=== PATIENT | female | born 1935 | race Two or more races ===

== ENCOUNTER 2023-03-07 00:19 | Inpatient (IN) | payer OTHER ==
[~2023-03-07] VITALS: Ht 157.5 cm; Wt 41.7 kg
[~2023-03-07 00:19] MED LIST: HYZAAR 50-12.1 UDTAB; JANUMET 50-1,1 UDTAB; LEVOXYL75 MCG; NEURONTIN300 MG
[2023-03-07] MEDS ORDERED: GLIMEPIRIDE1 M1 (00:52)
[2023-03-07] MEDS ORDERED: ARICEPT5 MG (00:53)
[2023-03-07] MEDS ORDERED: RAYOS2 MG (00:53)
[2023-03-07] MEDS ORDERED: NAMENDA XR21 MG (00:53)
[2023-03-07 02:56] LABS: ABG PH 7.451 (7.35-7.45); ABG pCO2 42.8 mmHg (35-45)
[2023-03-07 02:57] LABS: ABG PO2 58.9 mmHg (80-100); BASE EXCESS 4.6 mmol/l; BICARBONATE 29.2 mmol/l (23-25); Tco2 30.5 mmol/l
[2023-03-07 02:58] LABS: allen test SATISFACTORY; o2 21 %; puncture site BRADIAL LEFT
[2023-03-07 02:59] LABS: SaO2 91.8 %
[2023-03-07 03:23] LABS: HEMATOCRIT 34.1 % (36.0-45.00); HEMOGLOBIN 11.5 g/dL (12.0-15.00); MEAN CELL VOLUME 95.8 fL (80.00-100.00); MEAN CORPUSCULAR HEMOGLOBIN 32.2 pg (27.00-32.0); MEAN CORPUSCULAR HGB CONC 33.6 g/dl (32.0-36.0); PLATELET COUNT 306 K/uL (150-450); RED BLOOD COUNT 3.56 M/uL (4.00-6.00); RED CELL DISTRIBUTION WIDTH 14.3 % (11.5-14.5)
[2023-03-07 03:31] LABS: INR 0.94; PARTIAL THROMBOPLASTIN TIME 25.6 SECONDS (22.0-34.0); PROTHROMBIN TIME 9.9 SECONDS (9.0-11.5)
[2023-03-07 03:32] LABS: ALBUMIN 3.1 gm/dL (3.4-5.0); BILIRUBIN TOTAL 0.12 mg/dL (0.3-1.2); CALCIUM 9.3 mg/dL (8.5-10.1); CREATININE SERUM 0.59 mg/dL (0.55-1.02); GFR 96.42; GLOBULINA 3.6 G/DL (2.4-3.5); POTASSIUM 3.93 mEq/L (3.5-5.1); TOTAL PROTEIN 6.7 gm/dL (6.4-8.2)
[2023-03-07 03:44] LABS: PH,URINE 7.5 (5.0-8.0); URINE APPEARANCE Cloudy; URINE BILIRRUBIN Negative (NEGATIVE); URINE BLOOD Negative; URINE COLOR Yellow; URINE LEUKOCYTE Large; URINE NITRATE Positive; URINE PROTEIN 30 (NEGATIVE); URINE UROBILINOGEN 0.2 E.U./dl
[2023-03-07 03:48] LABS: URINE EPITHELIAL CELLS 22.2 uL (0.0-38.8); URINE RBC 5.7 uL (0.0-20.8); URINE WBC 433.7 uL (0.0-23.2)
[2023-03-07 04:21] LABS: URINE BACTERIA > 9821.5 uL (0.0-1933); URINE GLUCOSE 500 MG/DL (NEGATIVE)
[2023-03-07 22:09] LABS: ABG PH 7.469 (7.35-7.45); ABG PO2 73.9 mmHg (80-100); ABG pCO2 43.3 mmHg (35-45); BASE EXCESS 6.2 mmol/l; BICARBONATE 30.7 mmol/l (23-25); SaO2 95.9 %; allen test SATISFACTORY; o2 32 %; puncture site RADIAL LEFT
[2023-03-09 07:36] LABS: HEMATOCRIT 32.8 % (36.0-45.00); HEMOGLOBIN 11.5 g/dL (12.0-15.00); MEAN CORPUSCULAR HEMOGLOBIN 32.9 pg (27.00-32.0); PLATELET COUNT 309 K/uL (150-450); RED BLOOD COUNT 3.49 M/uL (4.00-6.00)
[2023-03-09 07:49] LABS: ERYTHROCYTE SEDIMENTATION RATE 90 mm/hr
[2023-03-12 05:20] LABS: HEMATOCRIT 32.6 % (36.0-45.00); HEMOGLOBIN 11.2 g/dL (12.0-15.00); MEAN CELL VOLUME 95.5 fL (80.00-100.00); MEAN CORPUSCULAR HEMOGLOBIN 32.8 pg (27.00-32.0); MEAN CORPUSCULAR HGB CONC 34.4 g/dl (32.0-36.0); PLATELET COUNT 437 K/uL (150-450); RED BLOOD COUNT 3.41 M/uL (4.00-6.00); RED CELL DISTRIBUTION WIDTH 13.8 % (11.5-14.5)
[2023-03-12 05:45] LABS: ALBUMIN 2.2 gm/dL (3.4-5.0); BILIRUBIN TOTAL 0.13 mg/dL (0.3-1.2); CALCIUM 8.5 mg/dL (8.5-10.1); CREATININE SERUM 0.69 mg/dL (0.55-1.02); GFR 80.48; GLOBULINA 3.3 G/DL (2.4-3.5); POTASSIUM 3.46 mEq/L (3.5-5.1); TOTAL PROTEIN 5.5 gm/dL (6.4-8.2)
[2023-03-12 05:46] LABS: C-REACTIVE PROTEIN 1.74 MG/DL (0.00-0.29)
[2023-03-12 05:49] LABS: ERYTHROCYTE SEDIMENTATION RATE 74 mm/hr
[2023-03-14] MEDS ORDERED: BACTRIM DS TAB1 EACH PO (18:59)
[2023-03-14] MEDS ORDERED: INTESTINEX680 M2 PO (18:59)
[2023-03-14] MEDS ORDERED: XOPENEX CO1.25 MG/0. IH (18:59)
[2023-03-14] MEDS ORDERED: IPRATROPIU0.2 MG/1 M IH (18:59)
== END 2023-03-14 19:52 | disposition home or self-care (01) | DRG 872 ==
LOC: ER 00:19 → MEDI 19:32
PROVIDERS: General Practice; ADMIT Internal Medicine; ATTEND Internal Medicine
PROC: BW24ZZZ Computerized Tomography (CT Scan) of Chest and Abdomen (ICD-10-PCS; principal; 2023-03-08)
PROC: B24BYZZ Ultrasonography of Heart with Aorta using Other Contrast (ICD-10-PCS; 2023-03-08)
PROC: 3E0F7GC Introduction of Other Therapeutic Substance into Respiratory Tract, Via Natural or Artificial Opening (ICD-10-PCS; 2023-03-08)
DX: A41.9 Sepsis, unspecified organism (principal); J44.1 Chronic obstructive pulmonary disease with (acute) exacerbation; J45.901 Unspecified asthma with (acute) exacerbation; N39.0 Urinary tract infection, site not specified; R65.20 Severe sepsis without septic shock; J20.9 Acute bronchitis, unspecified; R09.02 Hypoxemia; G30.9 Alzheimer's disease, unspecified; F02.80 Dementia in other diseases classified elsewhere, unspecified severity, without behavioral disturbance, psychotic disturbance, mood disturbance, and anxiety; E11.40 Type 2 diabetes mellitus with diabetic neuropathy, unspecified; Z79.4 Long term (current) use of insulin; I10 Essential (primary) hypertension; B96.20 Unspecified Escherichia coli [E. coli] as the cause of diseases classified elsewhere; Z88.0 Allergy status to penicillin; E03.9 Hypothyroidism, unspecified

== ENCOUNTER 2024-03-11 10:09 | Inpatient (IN) | payer OTHER ==
[~2024-03-11] VITALS: Ht 160 cm; Wt 43.5 kg
[~2024-03-11 10:09] MED LIST changes: +ARICEPT5 MG; +BACTRIM DS TAB1 EACH PO; +GLIMEPIRIDE1 M1; +INTESTINEX680 M2 PO; +IPRATROPIU0.2 MG/1 M IH; +NAMENDA XR21 MG; +RAYOS2 MG; +XOPENEX CO1.25 MG/0. IH
--- NOTE | 2024-03-11 10:30 | NUR ---
SE RECIBE PACIENTE ALERTA Y ORIENTADA EN COMPANIA DE FAMILIAR LA CUAL AL MOMENTO REFIERE VENIR A CAUSA DE TOS CON ESPUTO DESDE HACE UN SHREYA. AL MOMENTO PACIENTE SATURANDO 95% Y NO SE OBSERVA CON DISTRES.
[2024-03-11] MEDS ORDERED: ACETAMINOPHEN 500 MG GEL..CAP PO ONE (11:00)
[2024-03-11] MEDS ORDERED: BENZONATATE 100 MG CAPSULE PO ONE (11:00)
--- NOTE | 2024-03-11 11:23 | NUR ---
PACIENTE CON ORDENES DE LABORATORIA SE LILY BAJO MEDIDAS ASEPTICAS.SE PROVEE MEDICAMENTOS BAJO ORDEN MEDICA SE ORIENTA SOBRE PROCESO A PACIENTE LA MISMA REFIERE ENTENDER.
[2024-03-11 11:41] LABS: HEMATOCRIT 33.4 % (36.0-45.00); HEMOGLOBIN 11.1 g/dL (12.0-15.00); MEAN CORPUSCULAR HEMOGLOBIN 32.5 pg (27.00-32.0); MEAN CORPUSCULAR HGB CONC 33.2 g/dl (32.0-36.0); PLATELET COUNT 394 K/uL (150-450)
[2024-03-11] MEDS ORDERED: METHYLPREDNISOLONE SOD SUCC 125 MG VIAL IV ONE ×2 (12:30→15:00)
[2024-03-11 13:24] LABS: ABG PH 7.409 (7.35-7.45); ABG PO2 60.1 mmHg (80-100); ABG pCO2 47.8 mmHg (35-45); BASE EXCESS 3.9 mmol/l; BICARBONATE 29.5 mmol/l (23-25); SaO2 91.2 %; allen test SATISFACTORY; o2 21 %; puncture site RADIAL LEFT
[2024-03-11] MEDS ORDERED: LEVALBUTEROL HCL 1.25 MG/3 ML SOLUTION IH ONE (13:30)
[2024-03-11] MEDS ORDERED: IPRATROPIUM BROMIDE 0.5 MG/2.5 ML AMPUL.NEB IH ONE (13:30)
--- NOTE | 2024-03-11 13:42 | NUR ---
SE CONECTA PACIENTE A MONITOR CARDIACO Y OXIMETRIE DE PULSO. SE CANALIZA Y SE THERESE EN S/L. SE LILY MUESTRAS DE LABORATOIROS Y SE ENVIAN. SE REALIZA EKG
[2024-03-11 14:09] LABS: PROTHROMBIN TIME 10.9 SECONDS (9.0-11.5)
[2024-03-11 14:17] LABS: ALBUMIN 3.8 gm/dL (3.4-5.0); BILIRUBIN TOTAL 0.27 mg/dL (0.3-1.2); CALCIUM 9.4 mg/dL (8.5-10.1); CREATININE SERUM 0.57 mg/dL (0.55-1.02); GFR 100.1; GLOBULINA 4.5 G/DL (2.4-3.5); POTASSIUM 4.47 mEq/L (3.5-5.1); TOTAL PROTEIN 8.3 gm/dL (6.4-8.2)
[2024-03-11] MEDS ORDERED: MAGNESIUM SULFATE IN WATER 2 GM/50 ML PIGGYBAG IV ONE (14:45)
[2024-03-11] MEDS ORDERED: IPRATROPIUM BROMIDE 0.5 MG/2.5 ML AMPUL.NEB IH SCH (14:45)
[2024-03-11] MEDS ORDERED: LEVALBUTEROL HCL 1.25 MG/3 ML SOLUTION IH SCH (14:45)
[2024-03-11] MEDS ORDERED: ACETAMINOPHEN 325 MG TABLET PO PRN (19:30)
[2024-03-11] MEDS ORDERED: 0.9 % SODIUM CHLORIDE 1,000 ML IV SCH (19:30)
[2024-03-11] MEDS ORDERED: INSULIN LISPRO 1,000 UNIT/10 ML UNITS SUBCUTANEO PRN (19:45)
[2024-03-11] MEDS ORDERED: DEXTROSE 50 % IN WATER 0.5 G/ML DISP.SYRIN IV PRN (19:45)
[2024-03-11 20:08] VITALS: BP 110/60; O2SAT 97
[2024-03-11] MEDS ORDERED: ATORVASTATIN CALCIUM 20 MG TABLET PO SCH (21:00)
[2024-03-11 22:20] VITALS: BP 136/70; O2SAT 100
[2024-03-12] MEDS ORDERED: LEVALBUTEROL HCL 1.25 MG/3 ML SOLUTION IH SCH
[2024-03-12] MEDS ORDERED: IPRATROPIUM BROMIDE 0.5 MG/2.5 ML AMPUL.NEB IH SCH ×2 (01:00)
[2024-03-12] MEDS ORDERED: METHYLPREDNISOLONE SOD SUCC 40 MG VIAL IV SCH ×2 (01:00→17:00)
[2024-03-12 01:18] VITALS: BP 132/63; O2SAT 100
[2024-03-12] MEDS ORDERED: LEVOTHYROXINE SODIUM 88 MCG TABLET PO SCH (06:00)
[2024-03-12] MEDS ORDERED: ATENOLOL 25 MG TABLET PO SCH (09:00)
[2024-03-12] MEDS ORDERED: AZITHROMYCIN 500 MG VIAL IV SCH (09:00)
[2024-03-12] MEDS ORDERED: BENZONATATE 100 MG CAPSULE PO SCH (09:00)
[2024-03-12] MEDS ORDERED: sulfaSALAzine 500 MG TABLET PO SCH (09:00)
[2024-03-12] MEDS ORDERED: MEMANTINE HCL 10 MG TABLET PO SCH (09:00)
[2024-03-12] MEDS ORDERED: ENOXAPARIN SODIUM 30 MG/0.3 ML SYRINGE SUBCUTANEO SCH (09:00)
[2024-03-12] MEDS ORDERED: LISINOPRIL 20 MG TABLET PO SCH (09:00)
[2024-03-12] MEDS ORDERED: ASPIRIN 81 MG TABLET.EC PO SCH (09:00)
[2024-03-12] MEDS ORDERED: levoFLOXacin IN DEXTROSE 5 % 100 ML IV SCH (09:00)
[2024-03-12] MEDS ORDERED: METHYLPREDNISOLONE SOD SUCC 125 MG VIAL IV SCH (09:00)
[2024-03-12 09:39] VITALS: BP 163/73; O2SAT 97
[2024-03-12 13:16] LABS: ABG PO2 68.8 mmHg (80-100); ABG pCO2 42.8 mmHg (35-45); BASE EXCESS 4.5 mmol/l; BICARBONATE 29.1 mmol/l (23-25); SaO2 94.6 %; Tco2 30.4 mmol/l
[2024-03-12 13:17] LABS: allen test SATISFACTORY; o2 21 %; puncture site RADIAL LEFT
[2024-03-12] MEDS ORDERED: DONEPEZIL HCL 5 MG TABLET PO SCH (17:00)
[2024-03-12 22:46] VITALS: BP 150/60
[2024-03-12 23:27] LABS: URINE APPEARANCE Cloudy; URINE BILIRRUBIN Negative (NEGATIVE); URINE BLOOD Large; URINE COLOR Orange; URINE KETONE Trace (NEGATIVE); URINE LEUKOCYTE Small; URINE NITRATE Positive; URINE UROBILINOGEN 0.2 E.U./dl
[2024-03-12 23:32] LABS: URINE BACTERIA 1597.6 uL (0.0-1933); URINE EPITHELIAL CELLS 3.4 uL (0.0-38.8); URINE WBC 158.1 uL (0.0-23.2)
[2024-03-13 00:21] LABS: URINE CAST 0.45 uL (0.0-1.40); URINE GLUCOSE >=1000 MG/DL (NEGATIVE); URINE PROTEIN 100 (NEGATIVE); URINE RBC > 10558.9 uL (0.0-20.8)
[2024-03-13 01:58] VITALS: BP 160/77; O2SAT 95
[2024-03-13 09:22] VITALS: BP 155/87; O2SAT 98
== END 2024-03-13 14:53 | disposition home or self-care (01) | DRG 192 ==
LOC: ER 10:11 → MEDJ 20:10
PROVIDERS: General Practice; Internal Medicine; ADMIT Internal Medicine; ATTEND Internal Medicine
PROC: BW24ZZZ Computerized Tomography (CT Scan) of Chest and Abdomen (ICD-10-PCS; principal; 2024-03-11)
DX: J44.1 Chronic obstructive pulmonary disease with (acute) exacerbation (principal); J43.2 Centrilobular emphysema; G30.9 Alzheimer's disease, unspecified; F02.80 Dementia in other diseases classified elsewhere, unspecified severity, without behavioral disturbance, psychotic disturbance, mood disturbance, and anxiety; F17.200 Nicotine dependence, unspecified, uncomplicated

== ENCOUNTER 2024-03-19 03:05 | Inpatient (IN) | payer OTHER ==
[~2024-03-19] VITALS: Ht 167.6 cm; Wt 44.5 kg
--- NOTE | 2024-03-19 03:12 | NUR ---
SE RECIBE PTE ALERTA Y ORIENTADA EN AMBULANCIA ACOMPANADA DE FAMILIAR LA CUAL REFIERE TRAER A PTE POR DIFICULTAD RESPIRATORIA. FAMILIAR REFIERE QUE PTE FUE DADO DE JAMES EN LA SEMANA. SPTE SE OBSERVA CON NON REBREATHER MASK AL 100%. SE PTE CON RESPIRACIONES ABDOMINALES, SE MIDEN S/V A PTE Y SE UBICA EN AREA DE CHEST PAIN.
[2024-03-19] MEDS ORDERED: ALBUTEROL SULFATE 3 ML/2.5 MG AMPUL.NEB IH SCH (03:30)
--- NOTE | 2024-03-19 03:45 | NUR ---
PTE FEMENINA EVALUADA POR . RN PHILLIPS ORIENTA A PTE Y FAMILIAR SOBRE ORDENES DE TX REFIERE COMPRENDER. COLECTA MUESTRAS DE LABORATORIOS Y CANALIZA VENA BAJO MEDIDAS ASEPTICAS. NOTIFICA A PERSONAL DE TERAPIA RESPIRATORIA ABGS Y TERAPIAS PENDIENTES. SE NOTIFICA A RADIOLOGIA PARA XRAY PENDIENTE. SE THERESE PTE EN CAMA NIVEL MAS BAJO CON BARANDAS ELEVADAS Y FRENOS COLOCADOS POR SEGURIDAD.
[2024-03-19 03:57] LABS: HEMATOCRIT 35.2 % (36.0-45.00); MEAN CELL VOLUME 95.9 fL (80.00-100.00); MEAN CORPUSCULAR HEMOGLOBIN 32.6 pg (27.00-32.0); PLATELET COUNT 523 K/uL (150-450); RED BLOOD COUNT 3.67 M/uL (4.00-6.00); RED CELL DISTRIBUTION WIDTH 18.1 % (11.5-14.5)
[2024-03-19 04:07] LABS: INR 1.04; PARTIAL THROMBOPLASTIN TIME 22.5 SECONDS (22.0-34.0); PROTHROMBIN TIME 11.3 SECONDS (9.0-11.5)
[2024-03-19 05:08] LABS: URINE APPEARANCE Clear; URINE BILIRRUBIN Negative (NEGATIVE); URINE BLOOD Small; URINE COLOR Dark Yellow; URINE KETONE Trace (NEGATIVE); URINE LEUKOCYTE Negative; URINE NITRATE Negative; URINE PROTEIN 30 (NEGATIVE); URINE UROBILINOGEN 0.2 E.U./dl
[2024-03-19 05:10] LABS: URINE EPITHELIAL CELLS 8.3 uL (0.0-38.8); URINE WBC 23.9 uL (0.0-23.2)
[2024-03-19 05:11] LABS: URINE BACTERIA > 9821.5 uL (0.0-1933); URINE GLUCOSE >=1000 MG/DL (NEGATIVE)
[2024-03-19 05:16] LABS: ALBUMIN 2.9 gm/dL (3.4-5.0); BILIRUBIN TOTAL 0.4 mg/dL (0.3-1.2); CREATININE SERUM 0.56 mg/dL (0.55-1.02); GFR 102.16; GLOBULINA 3.5 G/DL (2.4-3.5); POTASSIUM 4.46 mEq/L (3.5-5.1); TOTAL PROTEIN 6.4 gm/dL (6.4-8.2)
[2024-03-19] MEDS ORDERED: 0.9 % SODIUM CHLORIDE 1,000 ML IV ONE (05:45)
[2024-03-19 06:35] LABS: ABG PH 7.439 (7.35-7.45); ABG pCO2 51.1 mmHg (35-45)
[2024-03-19 06:36] LABS: ABG PO2 45.3 mmHg (80-100); BASE EXCESS 8.1 mmol/l; BICARBONATE 33.9 mmol/l (23-25); SaO2 83.9 %; Tco2 35.4 mmol/l; allen test SATISFACTORY; o2 21 %; puncture site RADIAL RIGHT
--- NOTE | 2024-03-19 07:30 | NUR ---
SE RECIBE PACIENTE EN CAMA POSICION SEMISENTADA, BARANDAS ELEVADAS Y TIMBRE - CESIBLE. CANULA NASAL A 3 LITROS. RR-28, SAT-92%. EXTREMIDADES SUPERIORES LIBRES DE EDEMA SALINE LOCK EN ANTEBRAZO RINA AREA LUIZA DE SIGNOS DE INFECCION RECIBIENDO 0.9 NSS 1,000 ML A 100 ML/HR. SONDA URINARIA PATENTE ORINA COLOR AMARILLO INTENSO. PENDIENTE CONSULTA CON MEDICINA INTERNA CON DR. HIGINIO POSADA.
[2024-03-19] MEDS ORDERED: METHYLPREDNISOLONE SOD SUCC 125 MG VIAL IV SCH (13:00)
[2024-03-19] MEDS ORDERED: INSULIN LISPRO 1,000 UNIT/10 ML UNITS SUBCUTANEO PRN (13:00)
[2024-03-19] MEDS ORDERED: DEXTROSE 50 % IN WATER 0.5 G/ML DISP.SYRIN IV PRN (13:00)
[2024-03-19] MEDS ORDERED: IPRATROPIUM BROMIDE 0.5 MG/2.5 ML AMPUL.NEB IH SCH (13:00)
[2024-03-19] MEDS ORDERED: ASPIRIN 81 MG TABLET.EC PO SCH (13:12)
[2024-03-19] MEDS ORDERED: ATENOLOL 25 MG TABLET PO SCH (13:12)
[2024-03-19] MEDS ORDERED: AZITHROMYCIN 500 MG VIAL IV SCH (13:12)
[2024-03-19] MEDS ORDERED: DONEPEZIL HCL 5 MG TABLET PO SCH (13:13)
[2024-03-19] MEDS ORDERED: 0.9 % SODIUM CHLORIDE 1,000 ML IV SCH (13:15)
[2024-03-19 15:35] LABS: ALBUMIN 2.5 gm/dL (3.4-5.0); CREATININE SERUM 0.51 mg/dL (0.55-1.02); GFR 113.81; PHOSPHOROUS 3.5 mg/dL (2.5-4.9); POTASSIUM 4.24 mEq/L (3.5-5.1)
[2024-03-19] MEDS ORDERED: LACTOBACILLUS ACIDOPHILUS 1 CAP CAP PO SCH (17:00)
[2024-03-19 17:03] VITALS: BP 140/61
[2024-03-19] MEDS ORDERED: AZTREONAM 1,000 MG VIAL IV SCH (21:00)
[2024-03-20] VITALS (8 sets, daily range): BP systolic 137–160; BP diastolic 63–83; O2SAT 89–95
[2024-03-20 09:32] LABS: ABG PH 7.457 (7.35-7.45); ABG pCO2 41.8 mmHg (35-45); BASE EXCESS 4.5 mmol/l; BICARBONATE 28.8 mmol/l (23-25); SaO2 89.4 %; Tco2 30.1 mmol/l
[2024-03-20 09:38] LABS: ABG PO2 53.1 mmHg (80-100); allen test SATISFACTORY; o2 21 %; puncture site RADIAL LEFT
[2024-03-20] MEDS ORDERED: BUDESONIDE 0.5 MG/2 ML AMPUL.NEB IH SCH (12:11)
[2024-03-20 16:01] LABS: ALBUMIN 2.5 gm/dL (3.4-5.0); BILIRUBIN TOTAL 0.37 mg/dL (0.3-1.2); CALCIUM 8.5 mg/dL (8.5-10.1); CREATININE SERUM 0.47 mg/dL (0.55-1.02); GFR 125.06; GLOBULINA 3.3 G/DL (2.4-3.5); POTASSIUM 3.69 mEq/L (3.5-5.1); TOTAL PROTEIN 5.8 gm/dL (6.4-8.2)
[2024-03-21] VITALS (8 sets, daily range): BP systolic 116–158; BP diastolic 58–81; O2SAT 92–100
[2024-03-21] MEDS ORDERED: INSULIN LISPRO 1,000 UNIT/10 ML UNITS SUBCUTANEO PRN (14:45)
[2024-03-21] MEDS ORDERED: METHYLPREDNISOLONE SOD SUCC 40 MG VIAL IV SCH (17:00)
[2024-03-21] MEDS ORDERED: ACETYLCYSTEINE 2,000 MG/10 ML ML IH SCH (20:00)
[2024-03-21] MEDS ORDERED: ALBUTEROL SULFATE 3 ML/2.5 MG AMPUL.NEB IH SCH (21:00)
[2024-03-21] MEDS ORDERED: INSULIN GLARGINE,HUM.REC.ANLOG 1,000 UNITS/10 ML UNITS SUBCUTANEO SCH ×2 (21:00)
[2024-03-22] VITALS (10 sets, daily range): BP systolic 15–159; BP diastolic 68–81; O2SAT 96–100
[2024-03-22 16:25] LABS: ABG PH 7.401 (7.35-7.45); ABG PO2 61.1 mmHg (80-100); ABG pCO2 49.3 mmHg (35-45); BASE EXCESS 4.1 mmol/l; SaO2 91.4 %; Tco2 31.5 mmol/l
[2024-03-22 16:26] LABS: allen test SATISFACTORY; o2 21 %; puncture site RADIAL LEFT
[2024-03-22 23:13] LABS: HEMATOCRIT 34.2 % (36.0-45.00); RED BLOOD COUNT 3.53 M/uL (4.00-6.00)
[2024-03-22 23:34] LABS: HEMOGLOBIN 11.3 g/dL (12.0-15.00)
[2024-03-22 23:35] LABS: PLATELET COUNT 531 K/uL (150-450)
[2024-03-22 23:40] LABS: ALBUMIN 2.3 gm/dL (3.4-5.0); BILIRUBIN TOTAL 0.15 mg/dL (0.3-1.2); CALCIUM 8.5 mg/dL (8.5-10.1); CREATININE SERUM 0.52 mg/dL (0.55-1.02); GFR 111.29; POTASSIUM 4.5 mEq/L (3.5-5.1); TOTAL PROTEIN 5.3 gm/dL (6.4-8.2)
[2024-03-23] VITALS (9 sets, daily range): BP systolic 142–168; BP diastolic 60–83; O2SAT 90–100
[2024-03-23 06:30] LABS: PH,URINE 6.5 (5.0-8.0); URINE APPEARANCE Clear; URINE BILIRRUBIN Negative (NEGATIVE); URINE BLOOD Negative; URINE COLOR Yellow; URINE KETONE Trace (NEGATIVE); URINE LEUKOCYTE Negative; URINE NITRATE Negative; URINE PROTEIN Negative (NEGATIVE); URINE UROBILINOGEN 0.2 E.U./dl
[2024-03-23 06:34] LABS: URINE BACTERIA 89.2 uL (0.0-1933); URINE RBC 3.8 uL (0.0-20.8); URINE WBC 15.1 uL (0.0-23.2)
[2024-03-23 06:35] LABS: URINE EPITHELIAL CELLS 0.7 uL (0.0-38.8); URINE GLUCOSE >=1000 MG/DL (NEGATIVE)
[2024-03-23] MEDS ORDERED: INSULIN GLARGINE,HUM.REC.ANLOG 1,000 UNITS/10 ML UNITS SUBCUTANEO SCH (17:00)
[2024-03-23] MEDS ORDERED: INSULIN LISPRO 1,000 UNIT/10 ML UNITS SUBCUTANEO SCH (17:00)
[2024-03-24] VITALS (10 sets, daily range): BP systolic 113–160; BP diastolic 64–80; O2SAT 90–100
[2024-03-25] VITALS (9 sets, daily range): BP systolic 132–162; BP diastolic 80–98; O2SAT 94–100
[2024-03-25] MEDS ORDERED: INSULIN LISPRO 1,000 UNIT/10 ML UNITS SUBCUTANEO SCH (08:00)
[2024-03-25] MEDS ORDERED: INSULIN GLARGINE,HUM.REC.ANLOG 1,000 UNITS/10 ML UNITS SUBCUTANEO SCH (17:00)
[2024-03-26] VITALS (9 sets, daily range): BP systolic 132–142; BP diastolic 67–79; O2SAT 92–100
[2024-03-26 23:54] LABS: ABG PH 7.471 (7.35-7.45); ABG PO2 65.5 mmHg (80-100); ABG pCO2 43.6 mmHg (35-45); BASE EXCESS 6.6 mmol/l; BICARBONATE 31.1 mmol/l (23-25); SaO2 94.3 %
[2024-03-26 23:55] LABS: Tco2 32.4 mmol/l; allen test SATISFACTORY; o2 21 %; puncture site RADIAL RIGHT
[2024-03-27] VITALS (7 sets, daily range): BP systolic 136–146; BP diastolic 66–83; O2SAT 90–100
[2024-03-27] MEDS ORDERED: METHYLPREDNISOLONE SOD SUCC 40 MG VIAL IV SCH (09:00)
== END 2024-03-27 17:23 | disposition home or self-care (01) | DRG 191 ==
LOC: ER 03:07 → SEC-K 13:18 → MEDJ 13:18 → MEDI 03-26 20:03
PROVIDERS: General Practice; Internal Medicine Infectious Disease; ADMIT Internal Medicine; ATTEND Internal Medicine
PROC: BW24ZZZ Computerized Tomography (CT Scan) of Chest and Abdomen (ICD-10-PCS; principal; 2024-03-19)
PROC: 4A12X4Z Monitoring of Cardiac Electrical Activity, External Approach (ICD-10-PCS; 2024-03-20)
DX: J44.1 Chronic obstructive pulmonary disease with (acute) exacerbation (principal); E87.1 Hypo-osmolality and hyponatremia; N39.0 Urinary tract infection, site not specified; R06.03 Acute respiratory distress; F03.90 Unspecified dementia, unspecified severity, without behavioral disturbance, psychotic disturbance, mood disturbance, and anxiety; I10 Essential (primary) hypertension; E03.9 Hypothyroidism, unspecified; E11.9 Type 2 diabetes mellitus without complications; Z79.4 Long term (current) use of insulin

== ENCOUNTER 2024-04-04 00:20 | Inpatient (IN) | payer OTHER ==
[~2024-04-04] VITALS: Ht 152.4 cm; Wt 43.5 kg
--- NOTE | 2024-04-04 00:35 | NUR ---
SE RECIBE PACIENTE EN AMBULANCIA. PARAMEDICOS REFIEREN QUE HIJA DE LA PACIENTE ACTIVO LA AMBULANCIA POR ESPISODIOS DE VOMITOS X2 EN RIOS RESIDENCIA. LA PACIENTE SE ENCUENTRA ALERTA Y ORIENTADA EN PERSONA, DESORIENTADA EN TIEMPO Y LUGAR. PACIENTE NO SE QUEJA DE DOLOR ABDOMINAL, SOLO SE QUEJA DE MAREOS. EN LA AMBULANCIA TUVO UN SOLO VOMITO
[2024-04-04] MEDS ORDERED: ONDANSETRON HCL 2 MG/ML VIAL IV STA (01:57)
[2024-04-04] MEDS ORDERED: HYOSCYAMINE SULFATE 0.125 MG TAB.SUBL SL STA (01:57)
[2024-04-04] MEDS ORDERED: LACTOBACILLUS ACIDOPHILUS 1 CAP CAP PO STA (01:58)
[2024-04-04] MEDS ORDERED: FAMOTIDINE/PF 20 MG/2 ML VIAL IV PUSH STA (01:58)
[2024-04-04] MEDS ORDERED: 0.9 % SODIUM CHLORIDE 1,000 ML IV ONE (02:00)
[2024-04-04] MEDS ORDERED: HYOSCYAMINE SULFATE 0.125 MG TAB.SUBL ONE (02:14)
[2024-04-04] MEDS ORDERED: ONDANSETRON HCL 2 MG/ML VIAL ONE (02:14)
[2024-04-04] MEDS ORDERED: FAMOTIDINE/PF 20 MG/2 ML VIAL ONE (02:15)
--- NOTE | 2024-04-04 02:25 | NUR ---
PTE ES ORIENTADA POR PAM [place] Y PTE REFIERE ENTENDER. RN CANALIZA A PTE, RECOLECTA MUESTRA DE LABORATORIOS Y LE ADMINISTRA MEDICAMENTOS HAZEL ORDEN MEDICA BAJO MEDIDAS ASEPTICAS.
[2024-04-04 03:22] LABS: PH,URINE 6.5 (5.0-8.0); URINE APPEARANCE Clear; URINE BILIRRUBIN Negative (NEGATIVE); URINE BLOOD Negative; URINE COLOR Yellow; URINE KETONE 15 (NEGATIVE); URINE LEUKOCYTE Negative; URINE NITRATE Positive; URINE PROTEIN Trace (NEGATIVE); URINE UROBILINOGEN 0.2 E.U./dl
[2024-04-04 03:23] LABS: URINE BACTERIA 970.6 uL (0.0-1933); URINE RBC 46.8 uL (0.0-20.8); URINE WBC 12.5 uL (0.0-23.2)
[2024-04-04 03:25] LABS: HEMATOCRIT 35.5 % (36.0-45.00); HEMOGLOBIN 12.3 g/dL (12.0-15.00); MEAN CELL VOLUME 93.3 fL (80.00-100.00); MEAN CORPUSCULAR HEMOGLOBIN 32.4 pg (27.00-32.0); MEAN CORPUSCULAR HGB CONC 34.7 g/dl (32.0-36.0); PLATELET COUNT 542 K/uL (150-450); RED BLOOD COUNT 3.81 M/uL (4.00-6.00); RED CELL DISTRIBUTION WIDTH 17.2 % (11.5-14.5)
[2024-04-04 03:31] LABS: URINE CAST 0.14 uL (0.0-1.40); URINE GLUCOSE 500 MG/DL (NEGATIVE); URINE YEAST MANY /hpf
[2024-04-04 04:51] LABS: ALBUMIN 2.4 gm/dL (3.4-5.0); BILIRUBIN TOTAL 0.37 mg/dL (0.3-1.2); CREATININE SERUM 0.38 mg/dL (0.55-1.02); GLOBULINA 3.8 G/DL (2.4-3.5); POTASSIUM 4.12 mEq/L (3.5-5.1); TOTAL PROTEIN 6.2 gm/dL (6.4-8.2)
[2024-04-04 05:03] LABS: GFR 159.82
--- NOTE | 2024-04-04 07:00 | NUR ---
SE RECIBE FEMINA EN KEKE CON BARANDAS ELEVADAS POR RIOS SEGURIDAD Y ABREU DE ID. VENOPUNCION PATENTE BAJANDO IV FLUIDS POR REGULADOR. PTE PENDIENTE A CONSULTA CON MEDICINA INTERNA.
[2024-04-04] MEDS ORDERED: VANCOMYCIN HCL 1,000 MG VIAL IV STA (10:07)
[2024-04-04] MEDS ORDERED: hydrALAZINE HCL 20 MG VIAL IV PRN (18:30)
[2024-04-04] MEDS ORDERED: ACETAMINOPHEN 325 MG TABLET PO PRN (18:30)
[2024-04-04] MEDS ORDERED: DEXTROSE 50 % IN WATER 0.5 G/ML DISP.SYRIN IV PRN (18:30)
[2024-04-04] MEDS ORDERED: INSULIN LISPRO 1,000 UNIT/10 ML UNITS SUBCUTANEO PRN (18:30)
[2024-04-04] MEDS ORDERED: ONDANSETRON HCL 4 MG in 0.9 % SODIUM CHLORIDE 50 ML IV PRN (18:30)
[2024-04-04] MEDS ORDERED: 0.9 % SODIUM CHLORIDE 1,000 ML IV SCH (18:30)
[2024-04-04] MEDS ORDERED: PANTOPRAZOLE SODIUM 40 MG/VIAL VIAL IV SCH (21:00)
[2024-04-04 21:55] VITALS: BP 117/74
[2024-04-05] MEDS ORDERED: SODIUM CHLORIDE 3% 500 ML IV NR (00:15)
[2024-04-05 02:14] VITALS: BP 131/59; O2SAT 93
[2024-04-05] MEDS ORDERED: LEVOTHYROXINE SODIUM 88 MCG TABLET PO SCH (06:00)
[2024-04-05 08:05] LABS: CALCIUM 7.9 mg/dL (8.5-10.1); GFR 259.11; POTASSIUM 3.54 mEq/L (3.5-5.1)
[2024-04-05 08:08] LABS: CREATININE SERUM 0.25 mg/dL (0.55-1.02)
[2024-04-05 08:46] VITALS: BP 148/70; O2SAT 98
[2024-04-05] MEDS ORDERED: ENOXAPARIN SODIUM 30 MG/0.3 ML SYRINGE SUBCUTANEO SCH (09:00)
[2024-04-05] MEDS ORDERED: LOSARTAN/HYDROCHLOROTHIAZIDE 1 UDTAB TABLET PO SCH (09:00)
[2024-04-05] MEDS ORDERED: SODIUM CHLORIDE 0.45 % 1,000 ML IV SCH (09:30)
[2024-04-05 11:54] LABS: HEMATOCRIT 36.8 % (36.0-45.00); HEMOGLOBIN 12.3 g/dL (12.0-15.00); MEAN CORPUSCULAR HGB CONC 33.4 g/dl (32.0-36.0); PLATELET COUNT 530 K/uL (150-450); RED BLOOD COUNT 3.83 M/uL (4.00-6.00); RED CELL DISTRIBUTION WIDTH 17.1 % (11.5-14.5)
[2024-04-05] MEDS ORDERED: LOSARTAN POTASSIUM 50 MG TABLET PO NR (12:00)
[2024-04-05 16:52] VITALS: BP 37/80
[2024-04-05 17:02] VITALS: BP 137/80
[2024-04-06 01:02] VITALS: BP 160/72; O2SAT 97
[2024-04-06 05:57] LABS: CALCIUM 8.4 mg/dL (8.5-10.1); GFR 237.08; POTASSIUM 3.19 mEq/L (3.5-5.1)
[2024-04-06 06:09] LABS: HEMATOCRIT 31.1 % (36.0-45.00); HEMOGLOBIN 11.1 g/dL (12.0-15.00); MEAN CELL VOLUME 95.6 fL (80.00-100.00); MEAN CORPUSCULAR HGB CONC 35.5 g/dl (32.0-36.0); PLATELET COUNT 493 K/uL (150-450); RED BLOOD COUNT 3.26 M/uL (4.00-6.00); RED CELL DISTRIBUTION WIDTH 17.4 % (11.5-14.5)
[2024-04-06 06:30] LABS: CREATININE SERUM 0.27 mg/dL (0.55-1.02)
[2024-04-06] MEDS ORDERED: POTASSIUM BICARBONATE/CIT AC 25 MEQ TABLET.EFF PO SCH (09:00)
[2024-04-06] MEDS ORDERED: LOSARTAN POTASSIUM 50 MG TABLET PO SCH (09:00)
[2024-04-06 09:10] VITALS: BP 147/78; O2SAT 98
== END 2024-04-06 17:54 | disposition home or self-care (01) | DRG 641 ==
LOC: ER 00:20 → MEDJ 18:22
PROVIDERS: General Practice; ADMIT Student in an Organized Health Care Education/Training Program; ATTEND Student in an Organized Health Care Education/Training Program
DX: E87.1 Hypo-osmolality and hyponatremia (principal); Z68.1 Body mass index [BMI] 19.9 or less, adult; E86.0 Dehydration; E87.6 Hypokalemia; R13.19 Other dysphagia; R63.0 Anorexia; J43.8 Other emphysema; I10 Essential (primary) hypertension; E11.9 Type 2 diabetes mellitus without complications; Z79.84 Long term (current) use of oral hypoglycemic drugs; Z87.891 Personal history of nicotine dependence

== ENCOUNTER 2024-04-18 03:14 | Emergency (ER) | payer OTHER ==
[~2024-04-18] VITALS: Ht 157.5 cm; Wt 59.0 kg
[2024-04-18] MEDS ORDERED: INSULIN REGULAR, HUMAN 1,000 UNIT/10 ML UNITS IV STA (04:56)
[2024-04-18] MEDS ORDERED: 0.9 % SODIUM CHLORIDE 1,000 ML IV ONE (05:00)
[2024-04-18 06:52] LABS: HEMATOCRIT 34.4 % (36.0-45.00); HEMOGLOBIN 11.7 g/dL (12.0-15.00); MEAN CELL VOLUME 95.8 fL (80.00-100.00); MEAN CORPUSCULAR HEMOGLOBIN 32.7 pg (27.00-32.0); MEAN CORPUSCULAR HGB CONC 34.1 g/dl (32.0-36.0); PLATELET COUNT 462 K/uL (150-450); RED BLOOD COUNT 3.59 M/uL (4.00-6.00); RED CELL DISTRIBUTION WIDTH 17.8 % (11.5-14.5)
[2024-04-18 07:12] LABS: ALBUMIN 2.4 gm/dL (3.4-5.0); BILIRUBIN TOTAL 0.29 mg/dL (0.3-1.2); CALCIUM 9.4 mg/dL (8.5-10.1); CREATININE SERUM 0.52 mg/dL (0.55-1.02); GFR 111.29; GLOBULINA 4.3 G/DL (2.4-3.5); POTASSIUM 3.97 mEq/L (3.5-5.1); TOTAL PROTEIN 6.7 gm/dL (6.4-8.2)
[2024-04-18 07:45] VITALS: BP 158/74; O2SAT 96
[2024-04-18 08:49] LABS: URINE APPEARANCE Cloudy; URINE BILIRRUBIN Negative (NEGATIVE); URINE COLOR Yellow; URINE KETONE Trace (NEGATIVE); URINE LEUKOCYTE Moderate; URINE NITRATE Negative; URINE PROTEIN Trace (NEGATIVE); URINE UROBILINOGEN 0.2 E.U./dl
[2024-04-18 08:50] LABS: URINE BACTERIA 192.1 uL (0.0-1933); URINE EPITHELIAL CELLS 2.5 uL (0.0-38.8); URINE RBC 8.5 uL (0.0-20.8); URINE WBC 809.6 uL (0.0-23.2)
[2024-04-18 09:10] LABS: URINE BLOOD TRACES; URINE CAST 0.44 uL (0.0-1.40); URINE GLUCOSE 500 MG/DL (NEGATIVE)
[2024-04-18 09:11] LABS: URINE MUCUS MODERATE
[2024-04-18] MEDS ORDERED: CIPROFLOXACIN IN 5 % DEXTROSE 400 MG/200 ML PIGGYBAG IV STA (09:21)
[2024-04-18] MEDS ORDERED: CIPROFLOXACIN IN 5 % DEXTROSE 400 MG/200 ML PIGGYBAG IV ONE (10:15)
== END 2024-04-18 13:47 | disposition home or self-care (01) ==
LOC: ER 03:14
PROVIDERS: General Practice
DX: R30.0 Dysuria (principal); E11.65 Type 2 diabetes mellitus with hyperglycemia; Z79.84 Long term (current) use of oral hypoglycemic drugs; Z88.0 Allergy status to penicillin; Z88.2 Allergy status to sulfonamides; I10 Essential (primary) hypertension; F03.90 Unspecified dementia, unspecified severity, without behavioral disturbance, psychotic disturbance, mood disturbance, and anxiety; N39.0 Urinary tract infection, site not specified
CPT/HCPCS: 36415; 96365; 96366; 99282; J0744; J1815; J7030

== ENCOUNTER 2024-04-28 15:54 | Inpatient (IN) | payer OTHER ==
[~2024-04-28] VITALS: Ht 154.9 cm; Wt 43.1 kg
[2024-04-28 17:08] LABS: HEMATOCRIT 33.1 % (36.0-45.00); HEMOGLOBIN 11.1 g/dL (12.0-15.00); MEAN CELL VOLUME 97.3 fL (80.00-100.00); MEAN CORPUSCULAR HEMOGLOBIN 32.6 pg (27.00-32.0); MEAN CORPUSCULAR HGB CONC 33.5 g/dl (32.0-36.0); PLATELET COUNT 603 K/uL (150-450); RED CELL DISTRIBUTION WIDTH 17.1 % (11.5-14.5)
[2024-04-28 17:28] LABS: PH,URINE 6.5 (5.0-8.0); URINE APPEARANCE Turbid; URINE BILIRRUBIN Negative (NEGATIVE); URINE BLOOD Large; URINE COLOR Dark Yellow; URINE GLUCOSE Negative (NEGATIVE); URINE KETONE Negative (NEGATIVE); URINE LEUKOCYTE Large; URINE NITRATE Positive; URINE PROTEIN 30 (NEGATIVE); URINE UROBILINOGEN 0.2 E.U./dl
[2024-04-28 17:34] LABS: URINE CAST 10.18 uL (0.0-1.40); URINE EPITHELIAL CELLS 72.7 uL (0.0-38.8); URINE RBC 513.1 uL (0.0-20.8)
[2024-04-28 18:12] LABS: URINE BACTERIA > 9821.5 uL (0.0-1933); URINE WBC > 5548.3 uL (0.0-23.2)
[2024-04-28 19:28] LABS: CREATININE SERUM 0.5 mg/dL (0.55-1.02); GFR 116.44; POTASSIUM 4.07 mEq/L (3.5-5.1)
[2024-04-28] MEDS ORDERED: CIPROFLOXACIN IN 5 % DEXTROSE 400 MG/200 ML PIGGYBAG IV ONE ×2 (19:45→19:48)
[2024-04-28] MEDS ORDERED: DEXTROSE 50 % IN WATER 0.5 G/ML DISP.SYRIN IV PRN (22:00)
[2024-04-28] MEDS ORDERED: 0.9 % SODIUM CHLORIDE 1,000 ML IV SCH (22:00)
[2024-04-28] MEDS ORDERED: INSULIN LISPRO 1,000 UNIT/10 ML UNITS SUBCUTANEO PRN (22:00)
[2024-04-28] MEDS ORDERED: DONEPEZIL HCL 10 MG TABLET PO SCH (22:11)
[2024-04-28] MEDS ORDERED: MORPHINE SULFATE 2 MG/ML CARTRIDGE IV PRN (22:15)
[2024-04-28] MEDS ORDERED: ONDANSETRON HCL 4 MG in 0.9 % SODIUM CHLORIDE 50 ML IV PRN (22:15)
[2024-04-28] MEDS ORDERED: ACETAMINOPHEN 500 MG GEL..CAP PO PRN (22:15)
[2024-04-28] MEDS ORDERED: hydrALAZINE HCL 20 MG VIAL IV PRN (22:15)
[2024-04-29] MEDS ORDERED: LEVOTHYROXINE SODIUM 88 MCG TABLET PO SCH (06:00)
[2024-04-29 06:21] LABS: HEMOGLOBIN 11.9 g/dL (12.0-15.00); RED BLOOD COUNT 3.61 M/uL (4.00-6.00); RED CELL DISTRIBUTION WIDTH 17.5 % (11.5-14.5)
[2024-04-29 06:22] LABS: PLATELET COUNT 655 K/uL (150-450)
[2024-04-29 06:44] LABS: ERYTHROCYTE SEDIMENTATION RATE 91 mm/hr
[2024-04-29 08:00] VITALS: BP 160/82; O2SAT 97
[2024-04-29] MEDS ORDERED: MEMANTINE HCL 10 MG TABLET PO SCH (09:00)
[2024-04-29] MEDS ORDERED: LISINOPRIL 20 MG TABLET PO SCH (09:00)
[2024-04-29] MEDS ORDERED: ATORVASTATIN CALCIUM 20 MG TABLET PO SCH (09:00)
[2024-04-29] MEDS ORDERED: PREDNISONE 5 MG TABLET PO SCH (09:00)
[2024-04-29] MEDS ORDERED: ATENOLOL 25 MG TABLET PO SCH (09:00)
[2024-04-29] MEDS ORDERED: FAMOTIDINE/PF 20 MG in 0.9 % SODIUM CHLORIDE 8 ML IV PUSH SCH (09:00)
[2024-04-29] MEDS ORDERED: sulfaSALAzine 500 MG TABLET PO SCH (09:00)
[2024-04-29] MEDS ORDERED: CIPROFLOXACIN IN 5 % DEXTROSE 200 ML IV SCH (09:00)
[2024-04-29] MEDS ORDERED: ENOXAPARIN SODIUM 40 MG/0.4 ML SYRINGE SUBCUTANEO SCH (09:00)
[2024-04-29 09:14] LABS: PH,URINE 7.5 (5.0-8.0); URINE APPEARANCE Turbid; URINE BILIRRUBIN Negative (NEGATIVE); URINE BLOOD Moderate; URINE COLOR Yellow; URINE KETONE Negative (NEGATIVE); URINE LEUKOCYTE Large; URINE NITRATE Negative; URINE PROTEIN Trace (NEGATIVE); URINE UROBILINOGEN 0.2 E.U./dl
[2024-04-29 09:56] LABS: URINE BACTERIA 1083.1 uL (0.0-1933); URINE EPITHELIAL CELLS 4.2 uL (0.0-38.8); URINE RBC 10.9 uL (0.0-20.8); URINE WBC 1174.4 uL (0.0-23.2)
[2024-04-29 10:40] LABS: URINE CAST 1.32 uL (0.0-1.40); URINE GLUCOSE 100 MG/DL (NEGATIVE)
[2024-04-29 11:13] LABS: INR 1.03; PROTHROMBIN TIME 11.2 SECONDS (9.0-11.5)
[2024-04-29 11:18] LABS: ALBUMIN 2.5 gm/dL (3.4-5.0); BILIRUBIN TOTAL 0.36 mg/dL (0.3-1.2); BILIRUBIN,CONJUGATED 0.11 mg/dL (0.0-0.2); BILIRUBIN,UNCONJUGATED 0.25 mg/dL (0.0-0.6); CALCIUM 8.6 mg/dL (8.5-10.1); CHOL HDL RATIO 2.8 (0-5.0); CREATININE SERUM 0.46 mg/dL (0.55-1.02); GFR 128.2; GLOBULINA 3.3 G/DL (2.4-3.5); POTASSIUM 4.04 mEq/L (3.5-5.1); TOTAL PROTEIN 5.8 gm/dL (6.4-8.2)
[2024-04-29 13:13] LABS: C-REACTIVE PROTEIN 0.76 MG/DL (0.00-0.29)
[2024-04-29] MEDS ORDERED: INSULIN LISPRO 1,000 UNIT/10 ML UNITS SUBCUTANEO PRN (16:00)
[2024-04-29 16:42] VITALS: BP 162/72; O2SAT 100
[2024-04-29] MEDS ORDERED: CLONAZEPAM 0.5 MG TABLET PO SCH (21:00)
[2024-04-29] MEDS ORDERED: INSULIN GLARGINE,HUM.REC.ANLOG 1,000 UNITS/10 ML UNITS SUBCUTANEO SCH (21:00)
[2024-04-30 01:47] VITALS: BP 122/63
[2024-04-30 06:31] LABS: HEMATOCRIT 32.5 % (36.0-45.00); HEMOGLOBIN 11.1 g/dL (12.0-15.00); MEAN CELL VOLUME 96.8 fL (80.00-100.00); MEAN CORPUSCULAR HGB CONC 34.1 g/dl (32.0-36.0); PLATELET COUNT 634 K/uL (150-450); RED BLOOD COUNT 3.36 M/uL (4.00-6.00); RED CELL DISTRIBUTION WIDTH 17.6 % (11.5-14.5)
[2024-04-30 09:21] VITALS: BP 151/60; O2SAT 99
[2024-04-30 18:26] VITALS: BP 130/70
[2024-04-30] MEDS ORDERED: VANCOMYCIN HCL 500 MG in 0.9 % SODIUM CHLORIDE 100 ML IV SCH (21:00)
[2024-05-01 01:26] VITALS: BP 149/81
[2024-05-01 14:57] VITALS: BP 138/71; O2SAT 98
[2024-05-01 16:39] VITALS: BP 105/55; O2SAT 96
[2024-05-01 20:49] VITALS: BP 148/63; O2SAT 98
[2024-05-02 02:07] VITALS: BP 144/56
[2024-05-02] MEDS ORDERED: VANCOMYCIN HCL 500 MG in 0.9 % SODIUM CHLORIDE 100 ML IV SCH (05:00)
[2024-05-02] MEDS ORDERED: INSULIN LISPRO 1,000 UNIT/10 ML UNITS SUBCUTANEO SCH (08:00)
[2024-05-02 08:54] VITALS: BP 160/57; O2SAT 97
[2024-05-02] MEDS ORDERED: FAMOTIDINE/PF 20 MG in 0.9 % SODIUM CHLORIDE 8 ML IV PUSH SCH (09:00)
[2024-05-02 16:34] VITALS: BP 120/60; O2SAT 99
[2024-05-03 01:49] VITALS: BP 160/67; O2SAT 96
[2024-05-03 08:30] VITALS: BP 141/59
[2024-05-03 16:14] LABS: HEMATOCRIT 26.7 % (36.0-45.00); HEMOGLOBIN 9.2 g/dL (12.0-15.00); MEAN CELL VOLUME 98.2 fL (80.00-100.00); MEAN CORPUSCULAR HEMOGLOBIN 33.8 pg (27.00-32.0); MEAN CORPUSCULAR HGB CONC 34.4 g/dl (32.0-36.0); PLATELET COUNT 539 K/uL (150-450); RED BLOOD COUNT 2.72 M/uL (4.00-6.00); RED CELL DISTRIBUTION WIDTH 17.8 % (11.5-14.5)
[2024-05-03 16:48] LABS: ALBUMIN 2.1 gm/dL (3.4-5.0); BILIRUBIN TOTAL 0.38 mg/dL (0.3-1.2); CALCIUM 8.7 mg/dL (8.5-10.1); CREATININE SERUM 0.39 mg/dL (0.55-1.02); GFR 155.1; GLOBULINA 3.3 G/DL (2.4-3.5); POTASSIUM 4.2 mEq/L (3.5-5.1); TOTAL PROTEIN 5.4 gm/dL (6.4-8.2)
[2024-05-03 21:07] VITALS: BP 136/62
[2024-05-03 21:12] VITALS: BP 116/71
[2024-05-04 00:57] VITALS: BP 131/63; O2SAT 99
[2024-05-04 09:16] VITALS: BP 144/67; O2SAT 95
[2024-05-04] MEDS ORDERED: CLONAZEPAM0.5 MG PO (13:37)
== END 2024-05-04 13:53 | disposition home or self-care (01) | DRG 300 ==
LOC: ER 15:54 → SEC-K 22:58 → MEDI 22:58
PROVIDERS: General Practice; Student in an Organized Health Care Education/Training Program; ADMIT Internal Medicine; ATTEND Internal Medicine
PROC: BL31ZZZ Magnetic Resonance Imaging (MRI) of Lower Extremity Connective Tissue (ICD-10-PCS; 2024-04-30)
PROC: BL31YZZ Magnetic Resonance Imaging (MRI) of Lower Extremity Connective Tissue using Other Contrast (ICD-10-PCS; 2024-04-30)
PROC: B44HZZZ Ultrasonography of Bilateral Lower Extremity Arteries (ICD-10-PCS; principal; 2024-05-02)
DX: E11.51 Type 2 diabetes mellitus with diabetic peripheral angiopathy without gangrene (principal); B37.49 Other urogenital candidiasis; E87.1 Hypo-osmolality and hyponatremia; E11.65 Type 2 diabetes mellitus with hyperglycemia; L89.152 Pressure ulcer of sacral region, stage 2; L89.611 Pressure ulcer of right heel, stage 1; E03.9 Hypothyroidism, unspecified; D64.9 Anemia, unspecified; B95.7 Other staphylococcus as the cause of diseases classified elsewhere; Z88.0 Allergy status to penicillin; Z87.891 Personal history of nicotine dependence; Z79.4 Long term (current) use of insulin
CPT/HCPCS: 73722

== ENCOUNTER 2024-11-12 09:34 | Outpatient (CLI) | payer OTHER ==
[~2024-11-12 09:34] MED LIST changes: +CLONAZEPAM0.5 MG PO
== END 2024-11-12 09:46 | disposition home or self-care (01) ==
LOC: TOM 09:34
PROVIDERS: ATTEND Psychiatry & Neurology Neurology
DX: R41.3 Other amnesia (principal); M16.12 Unilateral primary osteoarthritis, left hip; M16.11 Unilateral primary osteoarthritis, right hip

== ENCOUNTER 2025-03-21 14:51 | Inpatient (IN) | payer OTHER ==
[~2025-03-21] VITALS: Ht 152.4 cm; Wt 59.0 kg
[2025-03-21] MEDS ORDERED: 0.9 % SODIUM CHLORIDE 1,000 ML IV SCH ×2 (16:00→21:00)
[2025-03-21] MEDS ORDERED: ONDANSETRON HCL 4 MG in 0.9 % SODIUM CHLORIDE 50 ML IV ONE (16:00)
[2025-03-21] MEDS ORDERED: FAMOTIDINE/PF 20 MG in 0.9 % SODIUM CHLORIDE 8 ML IV PUSH ONE (16:00)
[2025-03-21] MEDS ORDERED: ONDANSETRON HCL 2 MG/ML VIAL ONE (16:13)
[2025-03-21] MEDS ORDERED: FAMOTIDINE/PF 20 MG/2 ML VIAL ONE (16:13)
[2025-03-21 16:59] LABS: BASO % 0.4 % (0.1-1.2); EOS # 0.01 (0.04-0.54); EOS % 0.1 % (0.7-7.0); LYMPH # 0.56 (1.18-3.74); LYMPH % 3.2 % (19.3-53.1); MEAN PLATELET VOLUME 9.70 fl (9.4-12.4); MONO # 0.43 (0.24-0.82); MONO % 2.4 % (4.7-12.5); NEUT # 16.61 (1.56-6.13); NEUT % 93.4 % (34.0-71.1); RED CELL DISTRIBUTION WIDTH 15.2 % (11.6-14.4)
[2025-03-21 17:04] LABS: ERYTHROCYTE SEDIMENTATION RATE > 130 mm/hr (0-30)
[2025-03-21 17:08] LABS: ALT/SGPT 24.0 U/L (12-78); AST/SGOT 41.0 U/L (15-37); BILIRUBIN TOTAL 0.34 mg/dL (0.3-1.2); BUN CREA RATIO 31.0 (7.0-25.0); CREATININE SERUM 1.22 mg/dL (0.55-1.02); GFR 41.5; GLOBULINA 5.3 G/DL (2.4-3.5)
[2025-03-21 17:24] LABS: OSMOLALITY SERUM 284.0 MOSM/KG (275-295)
[2025-03-21 17:25] LABS: GLUCOSE FASTING 453.0 mg/dL (65-100)
[2025-03-21] MEDS ORDERED: CIPROFLOXACIN IN 5 % DEXTROSE 200 ML IV ONE (17:45)
[2025-03-21] MEDS ORDERED: INSULIN REGULAR, HUMAN 1,000 UNIT/10 ML UNITS IV ONE (17:45)
[2025-03-21] MEDS ORDERED: METRONIDAZOLE/SODIUM CHLORIDE 500 MG/100 ML PIGGYBACK IV ONE (18:31)
[2025-03-21] MEDS ORDERED: CIPROFLOXACIN IN 5 % DEXTROSE 400 MG/200 ML PIGGYBAG IV ONE (18:31)
[2025-03-21] MEDS ORDERED: FAMOTIDINE/PF 20 MG in 0.9 % SODIUM CHLORIDE 100 ML IV SCH (21:03)
[2025-03-21] MEDS ORDERED: CIPROFLOXACIN IN 5 % DEXTROSE 200 ML IV SCH (21:03)
[2025-03-21] MEDS ORDERED: LORazepam 2 MG/ML VIAL IV PRN (21:15)
[2025-03-21] MEDS ORDERED: LORazepam 2 MG/ML VIAL IV ONE (22:30)
[2025-03-22] VITALS (14 sets, daily range): BP systolic 70–132; BP diastolic 40–88; O2SAT 97–100
[2025-03-22] MEDS ORDERED: LORazepam 2 MG/ML VIAL ONE (01:29)
[2025-03-22] MEDS ORDERED: METRONIDAZOLE/SODIUM CHLORIDE 500 MG/100 ML PIGGYBACK IV ONE ×2 (02:51→04:07)
[2025-03-22] MEDS ORDERED: FAMOTIDINE/PF 20 MG/2 ML VIAL ONE (02:51)
[2025-03-22] MEDS ORDERED: EPINEPHRINE HCL/PF 1 MG/ML AMPUL IV PUSH ONE (03:00)
[2025-03-22] MEDS ORDERED: DOPamine HCL IN DEXTROSE 5 % 250 ML IV SCH (03:15)
[2025-03-22] MEDS ORDERED: MIDAZOLAM HCL/PF 5 MG/ML VIAL IV ONE (04:15)
[2025-03-22] MEDS ORDERED: MIDAZOLAM HCL 2 MG/2 ML VIAL IV STA (04:40)
[2025-03-22 07:13] LABS: INR 1.45
[2025-03-22 07:20] LABS: URINE APPEARANCE Clear; URINE BILIRRUBIN Negative (NEGATIVE); URINE BLOOD Negative; URINE COLOR Yellow; URINE KETONE Trace (NEGATIVE); URINE LEUKOCYTE Trace; URINE NITRATE Negative; URINE PROTEIN 30 (NEGATIVE); URINE UROBILINOGEN 0.2 E.U./dl
[2025-03-22 07:24] LABS: URINE BACTERIA 65.1 uL (0.0-1933); URINE CAST 2.83 uL (0.0-1.40); URINE EPITHELIAL CELLS 17.0 uL (0.0-38.8); URINE RBC 11.4 uL (0.0-20.8); URINE WBC 42.5 uL (0.0-23.2)
[2025-03-22 08:07] LABS: TYPE CELLS SQUAMOUS; URINE GLUCOSE >=1000 MG/DL (NEGATIVE); URINE YEAST FEW /hpf
[2025-03-22] MEDS ORDERED: NOREPINEPHRINE BITARTRATE 4 MG in DEXTROSE 5 % IN WATER 250 ML IV SCH (09:00)
[2025-03-22] MEDS ORDERED: CHLORHEXIDINE GLUCONATE 15ML BRUSH KIT MM SCH (13:00)
[2025-03-22] MEDS ORDERED: HYDROCORTISONE SODIUM SUCC/PF 100 MG VIAL IV SCH (14:00)
[2025-03-22] MEDS ORDERED: POLYVINYL ALCOHOL 15 ML DROPS OP SCH (17:00)
[2025-03-22] MEDS ORDERED: HYDROCORTISONE SODIUM SUCC/PF 50 MG/ML ML IV SCH (20:00)
[2025-03-23 04:00] VITALS: BP 128/63; O2SAT 100
[2025-03-23 07:45] VITALS: BP 142/67; O2SAT 100
[2025-03-23] MEDS ORDERED: CHLORHEXIDINE GLUCONATE 120 ML BOTTLE TOP ONE (10:31)
[2025-03-23 12:00] VITALS: BP 180/86; O2SAT 99
[2025-03-23 15:22] VITALS: BP 156/78; O2SAT 100
[2025-03-23] MEDS ORDERED: AZTREONAM 1,000 MG in 0.9 % SODIUM CHLORIDE 50 ML IV SCH (17:00)
[2025-03-23] MEDS ORDERED: levoFLOXacin IN DEXTROSE 5 % 150 ML IV SCH (19:30)
[2025-03-23 19:44] LABS: ALT/SGPT 70.0 U/L (12-78); AST/SGOT 109.0 U/L (15-37); BILIRUBIN TOTAL 0.33 mg/dL (0.3-1.2); BUN CREA RATIO 55.0 (7.0-25.0); CREATININE SERUM 0.33 mg/dL (0.55-1.02); GFR 187.65; GLOBULINA 3.7 G/DL (2.4-3.5); OSMOLALITY SERUM 283.0 MOSM/KG (275-295)
[2025-03-23 19:46] LABS: BASO % 0.4 % (0.1-1.2); EOS # 0.02 (0.04-0.54); EOS % 0.2 % (0.7-7.0); LYMPH # 0.67 (1.18-3.74); LYMPH % 6.7 % (19.3-53.1); MEAN PLATELET VOLUME 9.50 fl (9.4-12.4); MONO # 0.54 (0.24-0.82); MONO % 5.4 % (4.7-12.5); NEUT # 8.70 (1.56-6.13); NEUT % 86.9 % (34.0-71.1); RED CELL DISTRIBUTION WIDTH 14.9 % (11.6-14.4)
[2025-03-23 19:47] LABS: GLUCOSE FASTING 272.0 mg/dL (65-100)
[2025-03-23] MEDS ORDERED: INSULIN LISPRO 1,000 UNIT/10 ML UNITS SUBCUTANEO PRN (21:30)
[2025-03-23] MEDS ORDERED: DEXTROSE 50 % IN WATER 0.5 G/ML DISP.SYRIN IV PRN (21:30)
[2025-03-23 23:33] VITALS: BP 102/59; O2SAT 100
[2025-03-24] VITALS (7 sets, daily range): BP systolic 115–146; BP diastolic 58–72; O2SAT 99–100
[2025-03-24] MEDS ORDERED: HYDROCORTISONE SODIUM SUCC/PF 50 MG/ML ML IV SCH (05:00)
[2025-03-24] MEDS ORDERED: CIPROFLOXACIN IN 5 % DEXTROSE 200 ML IV SCH (09:00)
[2025-03-24] MEDS ORDERED: INSULIN NPH HUMAN ISOPHANE 1,000 UNITS/10 ML UNITS SUBCUTANEO SCH (09:00)
[2025-03-24] MEDS ORDERED: FLUCONAZOLE IN NACL,ISO-OSM 200 ML IV SCH (13:00)
[2025-03-24] MEDS ORDERED: SODIUM CL 0.9% 100 ML IV.SOLN IV ONE ×2 (16:59→23:45)
[2025-03-24] MEDS ORDERED: AZTREONAM 2,000 MG in 0.9 % SODIUM CHLORIDE 100 ML IV SCH (17:00)
[2025-03-24] MEDS ORDERED: RACEPINEPHRINE HCL 0.5 ML AMPUL IH ONE (17:11)
[2025-03-25] VITALS (7 sets, daily range): BP systolic 97–139; BP diastolic 62–80; O2SAT 99–100
[2025-03-25 07:30] LABS: ALT/SGPT 44.0 U/L (12-78); AST/SGOT 45.0 U/L (15-37); BILIRUBIN TOTAL 0.32 mg/dL (0.3-1.2); GLOBULINA 3.5 G/DL (2.4-3.5); GLUCOSE FASTING 102.0 mg/dL (65-100); OSMOLALITY SERUM 286.0 MOSM/KG (275-295); T4 TOTAL 4.22 UG/DL (4.8-13.9); TSH 0.535 uIU/mL (0.358-3.74)
[2025-03-25 07:39] LABS: BUN CREA RATIO 60.0 (7.0-25.0); CREATININE SERUM 0.25 mg/dL (0.55-1.02); GFR 258.52
[2025-03-25] MEDS ORDERED: SODIUM CL 0.9% 100 ML IV.SOLN IV ONE ×2 (08:02→08:32)
[2025-03-25] MEDS ORDERED: INSULIN NPH HUMAN ISOPHANE 1,000 UNITS/10 ML UNITS SUBCUTANEO SCH (09:00)
[2025-03-25] MEDS ORDERED: levoFLOXacin IN DEXTROSE 5 % 150 ML IV SCH (09:00)
[2025-03-25] MEDS ORDERED: POTASSIUM CHLORIDE IN WATER 100 ML IV SCH (12:00)
[2025-03-25 14:16] LABS: BASO % 0.1 % (0.1-1.2); EOS # 0.00 (0.04-0.54); EOS % 0.0 % (0.7-7.0); LYMPH # 0.47 (1.18-3.74); LYMPH % 3.6 % (19.3-53.1); MEAN PLATELET VOLUME 9.20 fl (9.4-12.4); MONO # 1.01 (0.24-0.82); MONO % 7.8 % (4.7-12.5); NEUT # 11.35 (1.56-6.13); NEUT % 87.8 % (34.0-71.1); RED CELL DISTRIBUTION WIDTH 15.1 % (11.6-14.4)
[2025-03-26] MEDS ORDERED: SODIUM CL 0.9% 100 ML IV.SOLN IV ONE ×2 (00:56→16:19)
[2025-03-26 04:00] VITALS: BP 145/60; O2SAT 100
[2025-03-26] MEDS ORDERED: LEVOTHYROXINE SODIUM 88 MCG TABLET PO SCH (06:00)
[2025-03-26 07:30] VITALS: BP 131/56; O2SAT 98
[2025-03-26 08:07] LABS: BUN CREA RATIO 53.0 (7.0-25.0); CREATININE SERUM 0.38 mg/dL (0.55-1.02); GFR 159.46; GLUCOSE FASTING 144.0 mg/dL (65-100); OSMOLALITY SERUM 292.0 MOSM/KG (275-295)
[2025-03-26] MEDS ORDERED: NOREPINEPHRINE BITARTRATE 8 MG in DEXTROSE 5 % IN WATER 250 ML IV SCH (08:30)
[2025-03-26] MEDS ORDERED: POTASSIUM CHLORIDE-0.45% NACL 20 MEQ/1,000 ML PIGGYBAG IV SCH (08:45)
[2025-03-26] MEDS ORDERED: METOPROLOL SUCCINATE 25 MG TAB.SR.24H PO NR (10:45)
[2025-03-26 12:00] VITALS: BP 110/67; O2SAT 100
[2025-03-26 15:42] VITALS: BP 110/67; O2SAT 97
[2025-03-26] MEDS ORDERED: HYDROCORTISONE SODIUM SUCC/PF 50 MG/ML ML IV SCH (17:00)
[2025-03-26 20:00] VITALS: BP 103/51; O2SAT 100
[2025-03-26 23:45] VITALS: BP 122/73; O2SAT 100
[2025-03-27] MEDS ORDERED: SODIUM CL 0.9% 100 ML IV.SOLN IV ONE ×4 (00:44→23:49)
[2025-03-27 04:00] VITALS: BP 106/61; O2SAT 100
[2025-03-27 08:01] VITALS: BP 116/73; O2SAT 99
[2025-03-27] MEDS ORDERED: METOPROLOL SUCCINATE 25 MG TAB.SR.24H PO SCH (09:00)
[2025-03-27 12:00] VITALS: BP 112/58; O2SAT 100
[2025-03-27 16:00] VITALS: BP 109/50; BP 93/42; O2SAT 100
[2025-03-27 20:00] VITALS: BP 95/62; O2SAT 100
[2025-03-27 23:00] VITALS: BP 140/80; O2SAT 100
[2025-03-28 07:03] VITALS: BP 104/60; O2SAT 96
[2025-03-28] MEDS ORDERED: PREDNISONE 10 MG TABLET PO SCH (09:08)
[2025-03-28 12:00] VITALS: BP 109/46; O2SAT 100
[2025-03-28 15:31] VITALS: BP 120/48; O2SAT 100
[2025-03-28] MEDS ORDERED: SODIUM CL 0.9% 100 ML IV.SOLN IV ONE ×2 (16:55→23:23)
[2025-03-28 20:00] VITALS: BP 101/74; O2SAT 100
[2025-03-28 23:14] VITALS: BP 94/53; O2SAT 100
[2025-03-29 04:00] VITALS: BP 102/50; O2SAT 100
[2025-03-29 06:13] LABS: BASO % 0.1 % (0.1-1.2); EOS # 0.00 (0.04-0.54); EOS % 0.0 % (0.7-7.0); LYMPH # 1.04 (1.18-3.74); LYMPH % 6.3 % (19.3-53.1); MEAN PLATELET VOLUME 9.50 fl (9.4-12.4); MONO # 0.86 (0.24-0.82); MONO % 5.2 % (4.7-12.5); NEUT # 14.37 (1.56-6.13); NEUT % 87.6 % (34.0-71.1); RED CELL DISTRIBUTION WIDTH 15.8 % (11.6-14.4)
[2025-03-29 06:50] LABS: ALT/SGPT 29.0 U/L (12-78); AST/SGOT 40.0 U/L (15-37); BILIRUBIN TOTAL 0.51 mg/dL (0.3-1.2); BUN CREA RATIO 44.0 (7.0-25.0); CREATININE SERUM 0.5 mg/dL (0.55-1.02); GFR 116.17; GLOBULINA 3.4 G/DL (2.4-3.5); GLUCOSE FASTING 180.0 mg/dL (65-100); OSMOLALITY SERUM 300.0 MOSM/KG (275-295)
[2025-03-29 07:03] VITALS: BP 89/50; O2SAT 95
[2025-03-29] MEDS ORDERED: SODIUM CL 0.9% 100 ML IV.SOLN IV ONE ×2 (07:48→16:34)
[2025-03-29 12:00] VITALS: BP 102/59; O2SAT 97
[2025-03-29] MEDS ORDERED: POTASSIUM CHLORIDE 20MEQ/100ML H2O PB IV SCH (13:00)
[2025-03-29 18:08] VITALS: BP 103/58; O2SAT 97
[2025-03-30 03:46] VITALS: BP 95/45; O2SAT 97
[2025-03-30] MEDS ORDERED: INSULIN NPH HUM/REG INSULIN HM 1,000 UNIT/10 ML UNITS SUBCUTANEO SCH (08:00)
[2025-03-30] MEDS ORDERED: SODIUM CL 0.9% 100 ML IV.SOLN IV ONE (08:30)
[2025-03-30] MEDS ORDERED: PREDNISONE 5 MG TABLET PO SCH (09:00)
[2025-03-30 11:19] VITALS: BP 90/55; O2SAT 99
[2025-03-30] MEDS ORDERED: PREDNISONE 1 MG TABLET PO SCH (17:00)
[2025-03-31 02:09] VITALS: BP 118/54; O2SAT 99
[2025-03-31] MEDS ORDERED: SODIUM CL 0.9% 100 ML IV.SOLN IV ONE (08:50)
[2025-03-31 09:35] VITALS: BP 122/80; O2SAT 96
[2025-03-31] MEDS ORDERED: INSULIN NPH HUMAN ISOPHANE 1,000 UNITS/10 ML UNITS SUBCUTANEO SCH (17:00)
[2025-03-31 19:45] VITALS: BP 116/87
[2025-04-01 02:38] VITALS: BP 90/64; O2SAT 93
[2025-04-01 06:10] LABS: BASO % 0.1 % (0.1-1.2); EOS # 0.01 (0.04-0.54); EOS % 0.1 % (0.7-7.0); LYMPH # 1.49 (1.18-3.74); LYMPH % 7.6 % (19.3-53.1); MEAN PLATELET VOLUME 10.00 fl (9.4-12.4); MONO # 0.79 (0.24-0.82); MONO % 4.0 % (4.7-12.5); NEUT # 17.16 (1.56-6.13); NEUT % 87.4 % (34.0-71.1); RED CELL DISTRIBUTION WIDTH 18.3 % (11.6-14.4)
[2025-04-01 07:18] LABS: ALT/SGPT 27.0 U/L (12-78); AST/SGOT 42.0 U/L (15-37); BILIRUBIN TOTAL 0.42 mg/dL (0.3-1.2); BUN CREA RATIO 54.0 (7.0-25.0); CREATININE SERUM 0.52 mg/dL (0.55-1.02); GFR 111.03; GLOBULINA 3.6 G/DL (2.4-3.5); GLUCOSE FASTING 177.0 mg/dL (65-100)
[2025-04-01 07:52] LABS: OSMOLALITY SERUM 315.0 MOSM/KG (275-295)
[2025-04-01] MEDS ORDERED: LEVOTHYROXINE SODIUM 88 MCG TABLET PO NR (08:15)
[2025-04-01] MEDS ORDERED: INSULIN NPH HUMAN ISOPHANE 1,000 UNITS/10 ML UNITS SUBCUTANEO SCH (09:00)
[2025-04-01] MEDS ORDERED: SODIUM CHLORIDE 0.45 % 1,000 ML IV SCH (11:00)
[2025-04-01] MEDS ORDERED: PREDNISONE 10 MG TABLET PO STA (11:13)
[2025-04-01] MEDS ORDERED: MAGNESIUM SULFATE IN WATER 50 ML IV NR (11:45)
[2025-04-01] MEDS ORDERED: POTASSIUM CHLORIDE 20MEQ/100ML H2O PB IV SCH (12:00)
[2025-04-01] MEDS ORDERED: levoFLOXacin IN DEXTROSE 5 % 5 MG/ML PIGGYBAG IV SCH (17:00)
[2025-04-01] MEDS ORDERED: METRONIDAZOLE/SODIUM CHLORIDE 500 MG/100 ML PIGGYBACK IV SCH (17:00)
[2025-04-01] MEDS ORDERED: SPIRONOLACTONE 50 MG TABLET PO SCH (17:00)
[2025-04-01 19:03] VITALS: BP 100/60; O2SAT 97
[2025-04-01] MEDS ORDERED: PREDNISONE 10 MG TABLET PO SCH (21:00)
[2025-04-02 02:58] VITALS: BP 106/69; O2SAT 98
[2025-04-02] MEDS ORDERED: LEVOTHYROXINE SODIUM 88 MCG TABLET PO SCH (06:00)
[2025-04-02] MEDS ORDERED: DEXTROSE 5 % IN WATER 1,000 ML IV SCH (08:15)
[2025-04-02 08:45] VITALS: BP 68/95; O2SAT 92
[2025-04-02] MEDS ORDERED: PREDNISONE 5 MG TABLET PO SCH (09:00)
[2025-04-02 09:32] LABS: ALT/SGPT 22.0 U/L (12-78); AST/SGOT 54.0 U/L (15-37); BILIRUBIN TOTAL 0.55 mg/dL (0.3-1.2); BUN CREA RATIO 44.0 (7.0-25.0); CREATININE SERUM 0.54 mg/dL (0.55-1.02); GFR 106.3; GLOBULINA 3.4 G/DL (2.4-3.5); OSMOLALITY SERUM 311.0 MOSM/KG (275-295)
[2025-04-02 09:34] LABS: GLUCOSE FASTING 286.0 mg/dL (65-100)
[2025-04-02 09:45] VITALS: BP 88/60
[2025-04-02] MEDS ORDERED: HYDROCORTISONE SODIUM SUCC/PF 100 MG VIAL IV STA (10:36)
[2025-04-02] MEDS ORDERED: 0.9 % SODIUM CHLORIDE 1,000 ML IV SCH (12:30)
[2025-04-02] MEDS ORDERED: INSULIN NPH HUMAN ISOPHANE 1,000 UNITS/10 ML UNITS SUBCUTANEO SCH (17:00)
[2025-04-02] MEDS ORDERED: HYDROCORTISONE SODIUM SUCC/PF 50 MG/ML ML IV SCH (17:00)
[2025-04-02 18:05] VITALS: BP 130/70
[2025-04-02] MEDS ORDERED: SODIUM CHLORIDE 0.45 % 1,000 ML IV SCH (23:15)
[2025-04-03 02:27] VITALS: BP 92/73; O2SAT 98
[2025-04-03] MEDS ORDERED: INSULIN NPH HUMAN ISOPHANE 1,000 UNITS/10 ML UNITS SUBCUTANEO SCH ×2 (09:00→17:00)
[2025-04-06] MEDS ORDERED: LEVOTHYROXINE SODIUM 100 MCG TABLET PO SCH (06:00)
== END 2025-04-03 12:56 | disposition expired | DRG 388 ==
LOC: ER 14:51 → SEC-K 22:09 → ICU 22:09 → SURG 22:09 → SURH 23:39 → SURG 03-22 00:05 → ICU 03-22 08:13 → MEDJ 03-29 13:12
PROVIDERS: General Practice; Internal Medicine; Internal Medicine Endocrinology, Diabetes & Metabolism; Internal Medicine Infectious Disease; Student in an Organized Health Care Education/Training Program; ADMIT Internal Medicine; ATTEND Internal Medicine
PROC: BW21ZZZ Computerized Tomography (CT Scan) of Abdomen and Pelvis (ICD-10-PCS; 2025-03-21)
PROC: 0BH18EZ Insertion of Endotracheal Airway into Trachea, Via Natural or Artificial Opening Endoscopic (ICD-10-PCS; principal; 2025-03-22)
PROC: 5A1955Z Respiratory Ventilation, Greater than 96 Consecutive Hours (ICD-10-PCS; 2025-03-22)
PROC: BT40ZZZ Ultrasonography of Bladder (ICD-10-PCS; 2025-03-22)
PROC: B020ZZZ Computerized Tomography (CT Scan) of Brain (ICD-10-PCS; 2025-03-22)
PROC: 02HV33Z Insertion of Infusion Device into Superior Vena Cava, Percutaneous Approach (ICD-10-PCS; 2025-03-23)
PROC: BW40ZZZ Ultrasonography of Abdomen (ICD-10-PCS; 2025-03-28)
DX: K56.609 Unspecified intestinal obstruction, unspecified as to partial versus complete obstruction (principal); J18.9 Pneumonia, unspecified organism; J96.90 Respiratory failure, unspecified, unspecified whether with hypoxia or hypercapnia; E87.1 Hypo-osmolality and hyponatremia; K80.10 Calculus of gallbladder with chronic cholecystitis without obstruction; N17.9 Acute kidney failure, unspecified; E27.40 Unspecified adrenocortical insufficiency; J44.1 Chronic obstructive pulmonary disease with (acute) exacerbation; N39.0 Urinary tract infection, site not specified; G30.9 Alzheimer's disease, unspecified; F02.80 Dementia in other diseases classified elsewhere, unspecified severity, without behavioral disturbance, psychotic disturbance, mood disturbance, and anxiety; I10 Essential (primary) hypertension; I46.9 Cardiac arrest, cause unspecified; D64.9 Anemia, unspecified; E03.9 Hypothyroidism, unspecified; E11.65 Type 2 diabetes mellitus with hyperglycemia; Z79.4 Long term (current) use of insulin; Z74.01 Bed confinement status; E87.6 Hypokalemia; Z66 Do not resuscitate